=== PATIENT | female | born 1995 | race Caucasian/White ===

== ENCOUNTER 2021-09-09 21:47 | Emergency (ER) | payer MEDICAID ==
[~2021-09-09] VITALS: Ht 160 cm; Wt 62.0 kg
[2021-09-09] MEDS ORDERED: TETANUS, DIPHTHERIA, PERTUSSIS VAC/PF 0.5ML (>10YR OLD) IM ONE (23:15)
[2021-09-09] MEDS ORDERED: AMOX1TAB16 MT (23:37)
[2021-09-09 23:45] VITALS: BP 113/59
== END 2021-09-09 23:45 | disposition home or self-care (01) ==
LOC: ER 21:47
DX: S51.852A Open bite of left forearm, initial encounter (principal); W54.0XXA Bitten by dog, initial encounter; Y93.89 Activity, other specified; Y92.488 Other paved roadways as the place of occurrence of the external cause
CPT/HCPCS: 81025; 90471; 90715; 99283